=== PATIENT | male | born 1990 | race Caucasian/White ===

== ENCOUNTER 2017-11-21 18:26 | Emergency (ER) | payer SELFPAY ==
[~2017-11-21] VITALS: Ht 170.2 cm; Wt 72.1 kg
[2017-11-21 21:40] VITALS: BP 138/86
== END 2017-11-21 21:41 | disposition home or self-care (01) ==
LOC: EME 18:26
DX: T40.1X1A Poisoning by heroin, accidental (unintentional), initial encounter (principal); F17.200 Nicotine dependence, unspecified, uncomplicated
CPT/HCPCS: 99281; 99284; J2310; J7120